=== PATIENT | male | born 1960 | race Caucasian/White ===

== ENCOUNTER 2020-01-21 09:53 | Emergency (ER) | payer BC, OTHER ==
[~2020-01-21] VITALS: Ht 175.3 cm; Wt 87.0 kg
[2020-01-21] MEDS ORDERED: LIDOcaine 1% 30ml preserv. free vial SQ STA (11:01)
[2020-01-21] MEDS ORDERED: morphine 2 MG/ML inj. syringe IV ONE (11:15)
--- NOTE | 2020-01-21 11:39 | NUR ---
DR. RILEY AT BEDSIDE.
[2020-01-21] MEDS ORDERED: CELE-193 PO (11:57)
[2020-01-21 11:59] VITALS: BP 142/95
== END 2020-01-21 12:30 | disposition home or self-care (01) ==
LOC: ER 09:53
DX: M54.12 Radiculopathy, cervical region (principal); I10 Essential (primary) hypertension; Z72.89 Other problems related to lifestyle; Z79.899 Other long term (current) drug therapy
CPT/HCPCS: 20553; 82948; 99284